=== PATIENT | female | born 1955 | race African-American/Black ===

== ENCOUNTER 2019-02-28 09:19 | Emergency (ER) | payer SELFPAY ==
--- NOTE | 2019-02-28 11:11 | CT ---
CT head without contrast: Multiple axial tomograms obtained through the head without IV enhancement. INDICATIONS: Headache COMPARISON: None FINDINGS: Ventricles have normal size and position. No evidence of intracranial mass, hemorrhage, edema, or infarct. Visualized sinuses and mastoids appear clear. Bony calvarium appears unremarkable. IMPRESSION: No acute finding
[2019-02-28] MEDS ORDERED: Metoclopramide HCl 10 MG/2 ML VIAL ONE (11:16)
[2019-02-28] MEDS ORDERED: Ketorolac Tromethamine 30 MG/ML VIAL ONE (11:17)
[2019-02-28] MEDS ORDERED: Dexamethasone 10 MG/ML VIAL ONE (11:17)
[2019-02-28 11:27] LABS: #Eosinphils 0.1 thou/uL (0.0-0.7); #Lymphocytes 1.5 thou/uL (1.20-3.40); #Monocytes 0.4 thou/uL (0.11-0.59); #Neutrophils 3.9 thou/uL (1.40-6.50); %Basophils 0.8 % (0.0-1.0); %Eosinophils 1.6 % (0.0-10.0); %Monocytes 7.4 % (0.0-10.0); %Neutrophils 65.3 % (42.0-75.0); Mean Corpuscular HGB CONC 32.9 g/dL (32.0-36.0); Mean Corpuscular Hemoglobin 26.3 pg (27.0-31.0); Mean Corpuscular Volume 79.9 fL (78.0-98.0); Mean Platelet Volume 8.5 fL (7.4-10.4); Platelet Count 205 thou/uL (130-400); RBC Distribution Width 12.8 % (11.5-14.5); Red Blood Cell (RBC) Count 4.94 mill/uL (4.20-5.40); White Blood Cell (WBC) Count 5.9 thou/uL (4.8-10.8)
[2019-02-28 11:51] LABS: ALT (SGPT) 15 U/L (8-55); AST (SGOT) 14 U/L (5-34); Albumin 4.3 g/dL (3.4-4.8); Alkaline Phosphatase 87 U/L (40-150); Anion Gap 14 mmol/L (10-20); BUN (Urea Nitrogen) 12 mg/dL (9.8-20.1); Bilirubin, Total 0.4 mg/dL (0.2-1.2); Calc. Creatinine Clearance 0 mL/min (70-130); Carbon Dioxide 31 mmol/L (23-31); Chloride 101 mmol/L (98-107); Estimated GFR-MDRD Greater than 90; Globulin 3.9 g/dL (2.4-3.5); Glucose 113 mg/dL (80-115); Potassium 3.1 mmol/L (3.5-5.1); Protein, Total 8.2 g/dL (6.0-8.3); Sodium 143 mmol/L (136-145)
== END 2019-02-28 12:30 | disposition home or self-care (01) ==
LOC: ERS 09:19
DX: R51 Headache (principal); E87.6 Hypokalemia
CPT/HCPCS: 36415; 70450; 80053; 85025; 96365; 96375; J1100; J1885; J2765

== ENCOUNTER 2021-07-05 11:44 | Outpatient (CLI) | payer MEDICARE | END 2021-07-05 11:45 | disposition home or self-care (01) | LOC: BICULT 11:44 | PROVIDERS: ATTEND Nurse Practitioner | DX: R92.8 Other abnormal and inconclusive findings on diagnostic imaging of breast (principal); N64.9 Disorder of breast, unspecified ==

== ENCOUNTER 2022-08-17 09:05 | Outpatient (CLI) | payer MEDICARE, OTHER | END 2022-08-17 09:06 | disposition home or self-care (01) | LOC: BICMAMMO 09:05 | PROVIDERS: ATTEND Family Medicine | DX: Z13.820 Encounter for screening for osteoporosis (principal); R92.8 Other abnormal and inconclusive findings on diagnostic imaging of breast; E89.40 Asymptomatic postprocedural ovarian failure; M85.88 Other specified disorders of bone density and structure, other site; N63.21 Unspecified lump in the left breast, upper outer quadrant | CPT/HCPCS: 77080 ==

== ENCOUNTER 2024-08-28 13:20 | Outpatient (CLI) | payer MEDICARE | END 2024-08-28 13:21 | disposition home or self-care (01) | LOC: BICMAMMO 13:20 | PROVIDERS: ATTEND Family Medicine | DX: Z12.31 Encounter for screening mammogram for malignant neoplasm of breast (principal); N64.89 Other specified disorders of breast; Z80.3 Family history of malignant neoplasm of breast | CPT/HCPCS: 77063; 77067 ==

== ENCOUNTER 2024-09-15 09:31 | Outpatient (CLI) | payer MEDICARE | END 2024-09-15 09:32 | disposition home or self-care (01) | LOC: BICMAMMO 09:31 | PROVIDERS: ATTEND Family Medicine | DX: N64.89 Other specified disorders of breast (principal) | CPT/HCPCS: 76642; 77065; G0279 ==

== ENCOUNTER → 2024-09-22 | Day surgery (SDC) | payer MEDICARE | LOC: BICULT 12:04 | PROVIDERS: ATTEND Family Medicine | PROC: 0HB5XZX Excision of Chest Skin, External Approach, Diagnostic (ICD-10-PCS; principal; 2024-09-22) | DX: D05.12 Intraductal carcinoma in situ of left breast (principal); N63.20 Unspecified lump in the left breast, unspecified quadrant; C77.3 Secondary and unspecified malignant neoplasm of axilla and upper limb lymph nodes | CPT/HCPCS: 19083; 38505; 76942; 88305; 88341; 88342; 88361 ==

== ENCOUNTER 2024-11-10 08:03 | Outpatient (CLI) | payer OTHER ==
[2024-11-10] MEDS ORDERED: Iopamidol 370 76% 100 ML VIAL ONE (09:11)
== END 2024-11-10 08:04 | disposition home or self-care (01) ==
LOC: NM 08:03
PROVIDERS: ATTEND Surgery
DX: C50.112 Malignant neoplasm of central portion of left female breast (principal)
CPT/HCPCS: 36415; 71260; 74177; 78306; 82565 ×2; A9503

== ENCOUNTER 2025-06-09 14:39 | Observation (INO) | payer OTHER ==
[~2025-06-09 14:39] MED LIST: Iopamidol-370 76% 500 ML MDV (1 ML CHARGE) ONE
[2025-06-09 15:44] LABS: #Basophils Less than 0.03 10x3/uL (0.0-0.2); #Eosinophils 0.05 10x3/uL (0.0-0.7); #Monocytes 0.93 10x3/uL (0.11-0.59); #Neutrophils 4.00 10x3/uL (1.40-6.50); %Basophils 0.3 % (0.0-1.0); %Eosinophils 0.8 % (0.0-10.0); %Lymphocytes 17.9 % (21.0-51.0); %Monocytes 15.2 % (0.0-10.0); %Neutrophils 65.3 % (42.0-75.0); Hematocrit 27.4 % (36.0-47.0); Hemoglobin 8.7 g/dL (12.0-16.0); Mean Corpuscular Hemoglobin 27.1 pg (27.0-31.0); Mean Corpuscular Volume 85.4 fL (78.0-98.0); Platelet Count 317 10x3/uL (130-400); Red Blood Cell (RBC) Count 3.21 mill/uL (4.20-5.40); White Blood Cell (WBC) Count 6.13 10x3/uL (4.8-10.8)
[2025-06-09 16:00] LABS: ALT (SGPT) 18 U/L (Less than 34); AST (SGOT) 21 U/L (11-34); Albumin 2.9 g/dL (3.1-4.5); Alkaline Phosphatase 87 U/L (40-110); Anion Gap 13 mmol/L (10-20); BUN (Urea Nitrogen) 5 mg/dL (9.8-20.1); Bilirubin, Total 0.3 mg/dL (0.3-1.2); Calc. Creatinine Clearance 0 mL/min (70-130); Calcium 9.4 mg/dL (7.8-10.44); Carbon Dioxide 24 mmol/L (23-31); Chloride 101 mmol/L (98-107); Globulin 3.4 g/dL (2.4-3.5); Glucose 138 mg/dL (80-115); Potassium 4.1 mmol/L (3.5-5.1); Sodium 134 mmol/L (136-145)
[2025-06-09 18:04] LABS: CAUTI Indications for Culture Pelvic or flank pain; Glucose, Urine (Dipstick) Normal (Negative); Leukocyte 250 Leu/uL (Negative); Protein, Urine (Dipstick) Negative (Neg-Trace); RBC/HPF 0-3 HPF (0-3); Specific Gravity, Urine 1.003 (1.002-1.036)
[2025-06-09 18:06] LABS: Bacteria/HPF 1+ HPF (None Seen)
[2025-06-09 18:07] LABS: Urine Culture Reflex No No
[2025-06-09] MEDS ORDERED: cefTRIAXone (ROCEPHIN) 1 GM VIAL ONE (19:07)
[2025-06-09 22:44] VITALS: BMI 26.2
[2025-06-10] MEDS ORDERED: Ondansetron PF 4 MG/2 ML Vial IVP PRN (06:13)
[2025-06-10 06:32] LABS: #Basophils Less than 0.03 10x3/uL (0.0-0.2); #Eosinophils 0.04 10x3/uL (0.0-0.7); #Monocytes 0.92 10x3/uL (0.11-0.59); #Neutrophils 4.11 10x3/uL (1.40-6.50); %Basophils 0.3 % (0.0-1.0); %Eosinophils 0.7 % (0.0-10.0); %Lymphocytes 16.2 % (21.0-51.0); %Monocytes 15.0 % (0.0-10.0); %Neutrophils 67.1 % (42.0-75.0); Hematocrit 27.7 % (36.0-47.0); Hemoglobin 8.3 g/dL (12.0-16.0); Mean Corpuscular Hemoglobin 26.8 pg (27.0-31.0); Mean Corpuscular Volume 89.4 fL (78.0-98.0); Platelet Count 297 10x3/uL (130-400); Red Blood Cell (RBC) Count 3.10 mill/uL (4.20-5.40); White Blood Cell (WBC) Count 6.12 10x3/uL (4.8-10.8)
[2025-06-10 07:16] LABS: Anion Gap 14 mmol/L (10-20); BUN (Urea Nitrogen) 4 mg/dL (9.8-20.1); Calc. Creatinine Clearance 109 mL/min (70-130); Calcium 8.7 mg/dL (7.8-10.44); Carbon Dioxide 26 mmol/L (23-31); Chloride 104 mmol/L (98-107); Glucose 150 mg/dL (80-115); Potassium 4.0 mmol/L (3.5-5.1); Sodium 140 mmol/L (136-145)
[2025-06-10] MEDS ORDERED: Dextrose 50% Abboject 50 ML SYRINGE SLOW IVP PRN (07:34)
[2025-06-10] MEDS ORDERED: Glucagon 1 MG/ML KIT IM PRN (07:34)
[2025-06-10] MEDS: Acetaminophen 325 MG TAB PO PRN (07:36)
[2025-06-10] MEDS: Apixaban 5 MG TAB PO SCH (08:44)
[2025-06-10] MEDS: Lisinopril 10 MG TAB PO SCH (08:44)
[2025-06-10] MEDS: glipiZIDE 5 MG TAB PO SCH (08:44)
[2025-06-10 09:29] LABS: Cardiac Risk 3.8 (Less than 4.5); Cholesterol 127.0 mg/dl (< 200 Desired); HDL Cholesterol 33.0 mg/dL (>60 Neg Risk); LDL Cholesterol, Calculated 74.0 mg/dL; Triglycerides 101.0 mg/dL (Less than 150)
[2025-06-10] MEDS: HYDROcodone/Acetaminophen 7.5/325 mg Tablet PO PRN (11:50)
[2025-06-10] MEDS: Senokot S 8.6-50 MG TAB PO SCH (20:10)
[2025-06-11 06:44] LABS: #Basophils Less than 0.03 10x3/uL (0.0-0.2); #Eosinophils 0.06 10x3/uL (0.0-0.7); #Monocytes 0.88 10x3/uL (0.11-0.59); #Neutrophils 3.89 10x3/uL (1.40-6.50); %Basophils 0.3 % (0.0-1.0); %Eosinophils 1.0 % (0.0-10.0); %Lymphocytes 17.7 % (21.0-51.0); %Monocytes 14.8 % (0.0-10.0); %Neutrophils 65.7 % (42.0-75.0); Hematocrit 28.3 % (36.0-47.0); Hemoglobin 8.5 g/dL (12.0-16.0); Mean Corpuscular Hemoglobin 27.1 pg (27.0-31.0); Mean Corpuscular Volume 90.1 fL (78.0-98.0); Platelet Count 299 10x3/uL (130-400); Red Blood Cell (RBC) Count 3.14 mill/uL (4.20-5.40); White Blood Cell (WBC) Count 5.93 10x3/uL (4.8-10.8)
[2025-06-11 07:02] LABS: Anion Gap 12 mmol/L (10-20); BUN (Urea Nitrogen) 6 mg/dL (9.8-20.1); Calc. Creatinine Clearance 123 mL/min (70-130); Calcium 8.7 mg/dL (7.8-10.44); Carbon Dioxide 23 mmol/L (23-31); Chloride 104 mmol/L (98-107); Glucose 136 mg/dL (80-115); Potassium 3.7 mmol/L (3.5-5.1); Sodium 135 mmol/L (136-145)
[2025-06-11 08:16] VITALS: TEMP 98.9
[2025-06-11] MEDS: glipiZIDE 5 MG TAB PO SCH (08:17)
[2025-06-11 09:40] VITALS: BMI 26.2
[2025-06-11] MEDS: Lactulose 20 GM (30 mL) UDCUP PO SCH (11:14)
[2025-06-11 13:32] VITALS: BP 130/79
== END 2025-06-11 13:52 | disposition home or self-care (01) ==
LOC: ERS 14:39 → OBS 18:46
PROVIDERS: ADMIT Family Medicine; ATTEND Family Medicine
DX: R07.89 Other chest pain (principal); I10 Essential (primary) hypertension; E11.9 Type 2 diabetes mellitus without complications; E78.5 Hyperlipidemia, unspecified; N39.0 Urinary tract infection, site not specified; Z86.718 Personal history of other venous thrombosis and embolism; Z90.710 Acquired absence of both cervix and uterus; Z90.12 Acquired absence of left breast and nipple; Z79.84 Long term (current) use of oral hypoglycemic drugs; Z79.01 Long term (current) use of anticoagulants; Z79.899 Other long term (current) drug therapy
CPT/HCPCS: 71275; 78452; 80048; 80053; 80061; 81001; 82962; 83605; 83880; 84484 ×3; 85025 ×2; 87086; 93005; 93017; 94760; 96365; 96375; 99285; A9502; J0696; J2270 ×2; J2785 ×2; J7030; 36415; 36416; Q9967

== ENCOUNTER 2025-06-16 10:20 | Emergency (ER) | payer OTHER ==
[2025-06-16 10:46] LABS: #Basophils 0.03 10x3/uL (0.0-0.2); #Eosinophils 0.06 10x3/uL (0.0-0.7); #Monocytes 0.97 10x3/uL (0.11-0.59); #Neutrophils 7.77 10x3/uL (1.40-6.50); %Basophils 0.3 % (0.0-1.0); %Eosinophils 0.6 % (0.0-10.0); %Lymphocytes 10.6 % (21.0-51.0); %Monocytes 9.8 % (0.0-10.0); %Neutrophils 78.3 % (42.0-75.0); Hematocrit 30.5 % (36.0-47.0); Hemoglobin 9.3 g/dL (12.0-16.0); Mean Corpuscular Hemoglobin 26.6 pg (27.0-31.0); Mean Corpuscular Volume 87.1 fL (78.0-98.0); Platelet Count 284 10x3/uL (130-400); Red Blood Cell (RBC) Count 3.50 mill/uL (4.20-5.40); White Blood Cell (WBC) Count 9.92 10x3/uL (4.8-10.8)
[2025-06-16 11:31] LABS: ALT (SGPT) 22 U/L (Less than 34); AST (SGOT) 41 U/L (11-34); Albumin 3.4 g/dL (3.1-4.5); Alkaline Phosphatase 101 U/L (40-110); Anion Gap 14 mmol/L (10-20); BUN (Urea Nitrogen) 7 mg/dL (9.8-20.1); Bilirubin, Total 0.3 mg/dL (0.3-1.2); Calc. Creatinine Clearance 0 mL/min (70-130); Calcium 9.4 mg/dL (7.8-10.44); Carbon Dioxide 22 mmol/L (23-31); Chloride 102 mmol/L (98-107); Globulin 3.6 g/dL (2.4-3.5); Glucose 200 mg/dL (80-115); Lipase 22 U/L (8-78); Potassium 4.4 mmol/L (3.5-5.1); Sodium 134 mmol/L (136-145)
[2025-06-16] MEDS ORDERED: Ondansetron PF 4 MG/2 ML Vial ONE (12:49)
== END 2025-06-16 16:43 | disposition home or self-care (01) ==
LOC: ERS 10:20
DX: R07.89 Other chest pain (principal); I10 Essential (primary) hypertension; Z79.899 Other long term (current) drug therapy; Z79.82 Long term (current) use of aspirin
CPT/HCPCS: 71045; 74176; 80053; 83690; 83880; 84484 ×2; 85025; 93005; 94760; J2270; J2405; 96374; 96375

== ENCOUNTER 2025-06-18 12:27 | Emergency (ER) | payer OTHER ==
[2025-06-18] MEDS ORDERED: Iopamidol-370 76% 500 ML MDV (1 ML CHARGE) ONE (12:53)
[2025-06-18] MEDS ORDERED: Ketorolac Tromethamine 30 MG (1 mL) VIAL ONE (13:55)
[2025-06-18] MEDS ORDERED: Ondansetron PF 4 MG/2 ML Vial ONE (13:55)
[2025-06-18 13:59] LABS: #Basophils Less than 0.03 10x3/uL (0.0-0.2); #Eosinophils 0.07 10x3/uL (0.0-0.7); #Monocytes 0.71 10x3/uL (0.11-0.59); #Neutrophils 5.58 10x3/uL (1.40-6.50); %Basophils 0.3 % (0.0-1.0); %Eosinophils 0.9 % (0.0-10.0); %Lymphocytes 13.4 % (21.0-51.0); %Monocytes 9.6 % (0.0-10.0); %Neutrophils 75.4 % (42.0-75.0); Hematocrit 32.2 % (36.0-47.0); Hemoglobin 9.8 g/dL (12.0-16.0); Mean Corpuscular Hemoglobin 26.6 pg (27.0-31.0); Mean Corpuscular Volume 87.5 fL (78.0-98.0); Platelet Count 272 10x3/uL (130-400); Red Blood Cell (RBC) Count 3.68 mill/uL (4.20-5.40); White Blood Cell (WBC) Count 7.40 10x3/uL (4.8-10.8)
[2025-06-18 14:20] LABS: Anion Gap 13 mmol/L (10-20); BUN (Urea Nitrogen) 7 mg/dL (9.8-20.1); Calc. Creatinine Clearance 0 mL/min (70-130); Carbon Dioxide 24 mmol/L (23-31); Chloride 101 mmol/L (98-107); Potassium 4.3 mmol/L (3.5-5.1); Sodium 134 mmol/L (136-145)
[2025-06-18 14:21] LABS: ALT (SGPT) 17 U/L (Less than 34); AST (SGOT) 23 U/L (11-34); Albumin 3.5 g/dL (3.1-4.5); Alkaline Phosphatase 97 U/L (40-110); Bilirubin, Total 0.4 mg/dL (0.3-1.2); Calcium 9.5 mg/dL (7.8-10.44); Globulin 3.4 g/dL (2.4-3.5); Glucose 144 mg/dL (80-115); Lipase 19 U/L (8-78)
[2025-06-18 16:21] LABS: Bacteria/HPF None Seen HPF (None Seen); CAUTI Indications for Culture Dysuria,urgency,freq; Glucose, Urine (Dipstick) Normal (Negative); Leukocyte 75 Leu/uL (Negative); Protein, Urine (Dipstick) Negative (Neg-Trace); RBC/HPF 0-3 HPF (0-3); Specific Gravity, Urine 1.008 (1.002-1.036)
[2025-06-18 16:34] LABS: Urine Culture Reflex No No
== END 2025-06-18 17:29 | disposition home or self-care (01) ==
LOC: ERS 12:27
DX: K59.00 Constipation, unspecified (principal); I10 Essential (primary) hypertension; E78.5 Hyperlipidemia, unspecified; E11.9 Type 2 diabetes mellitus without complications; Z79.899 Other long term (current) drug therapy; Z55.6 Problems related to health literacy; Z79.82 Long term (current) use of aspirin
CPT/HCPCS: 74177; 80053; 81001; 83690; 85025; J1885; J2270; J2405; 36415; 96374; 96375; Q9967

== ENCOUNTER 2025-06-20 17:11 | Emergency (ER) | payer OTHER ==
[2025-06-20 18:56] LABS: Bacteria/HPF None Seen HPF (None Seen); CAUTI Indications for Culture Dysuria,urgency,freq; Glucose, Urine (Dipstick) Normal (Negative); Leukocyte 75 Leu/uL (Negative); Protein, Urine (Dipstick) Negative (Neg-Trace); RBC/HPF 0-3 HPF (0-3); Specific Gravity, Urine 1.004 (1.002-1.036); WBC/HPF 0-3 HPF (0-3)
[2025-06-20 18:58] LABS: Urine Culture Reflex No No
[2025-06-20 20:59] LABS: #Basophils Less than 0.03 10x3/uL (0.0-0.2); #Eosinophils 0.06 10x3/uL (0.0-0.7); #Monocytes 0.96 10x3/uL (0.11-0.59); #Neutrophils 6.49 10x3/uL (1.40-6.50); %Basophils 0.2 % (0.0-1.0); %Eosinophils 0.7 % (0.0-10.0); %Lymphocytes 13.4 % (21.0-51.0); %Monocytes 11.0 % (0.0-10.0); %Neutrophils 74.5 % (42.0-75.0); Hematocrit 28.7 % (36.0-47.0); Hemoglobin 9.0 g/dL (12.0-16.0); Mean Corpuscular Hemoglobin 27.1 pg (27.0-31.0); Mean Corpuscular Volume 86.4 fL (78.0-98.0); Platelet Count 239 10x3/uL (130-400); Red Blood Cell (RBC) Count 3.32 mill/uL (4.20-5.40); White Blood Cell (WBC) Count 8.72 10x3/uL (4.8-10.8)
[2025-06-20 21:14] LABS: ALT (SGPT) 21 U/L (Less than 34); AST (SGOT) 22 U/L (11-34); Albumin 3.2 g/dL (3.1-4.5); Alkaline Phosphatase 88 U/L (40-110); Anion Gap 14 mmol/L (10-20); BUN (Urea Nitrogen) 10 mg/dL (9.8-20.1); Bilirubin, Total 0.4 mg/dL (0.3-1.2); Calc. Creatinine Clearance 0 mL/min (70-130); Calcium 9.3 mg/dL (7.8-10.44); Carbon Dioxide 25 mmol/L (23-31); Chloride 107 mmol/L (98-107); Globulin 2.9 g/dL (2.4-3.5); Glucose 113 mg/dL (80-115); Lipase 23 U/L (8-78); Potassium 3.6 mmol/L (3.5-5.1); Sodium 142 mmol/L (136-145)
== END 2025-06-20 22:10 | disposition home or self-care (01) ==
LOC: ERS 17:11
DX: Z04.3 Encounter for examination and observation following other accident (principal); R53.1 Weakness; I10 Essential (primary) hypertension; E11.9 Type 2 diabetes mellitus without complications; E78.5 Hyperlipidemia, unspecified; Z79.899 Other long term (current) drug therapy; Z79.82 Long term (current) use of aspirin
CPT/HCPCS: 70450; 71045; 72125; 72170; 80053; 81001; 83690; 83880; 84484; 85025; 93005; 96372; 99285; J2270; 36415

== ENCOUNTER 2025-06-29 11:28 | Inpatient (IN) | payer OTHER ==
[2025-06-29 12:22] LABS: #Basophils 0.03 10x3/uL (0.0-0.2); #Eosinophils 0.09 10x3/uL (0.0-0.7); #Monocytes 0.61 10x3/uL (0.11-0.59); #Neutrophils 4.04 10x3/uL (1.40-6.50); %Basophils 0.5 % (0.0-1.0); %Eosinophils 1.5 % (0.0-10.0); %Lymphocytes 18.8 % (21.0-51.0); %Monocytes 10.3 % (0.0-10.0); %Neutrophils 68.4 % (42.0-75.0); Hematocrit 34.5 % (36.0-47.0); Hemoglobin 10.9 g/dL (12.0-16.0); Mean Corpuscular Hemoglobin 26.4 pg (27.0-31.0); Mean Corpuscular Volume 83.5 fL (78.0-98.0); Platelet Count 257 10x3/uL (130-400); Red Blood Cell (RBC) Count 4.13 mill/uL (4.20-5.40); White Blood Cell (WBC) Count 5.91 10x3/uL (4.8-10.8)
[2025-06-29 12:38] LABS: INR-International Normal Ratio 1.1; PTT 26.8 sec (22.9-36.1); Prothrombin Time 14.3 sec (12.0-14.7)
[2025-06-29 12:50] LABS: ALT (SGPT) 24 U/L (Less than 34); AST (SGOT) 31 U/L (11-34); Albumin 3.5 g/dL (3.1-4.5); Alkaline Phosphatase 95 U/L (40-110); Anion Gap 16 mmol/L (10-20); BUN (Urea Nitrogen) 9 mg/dL (9.8-20.1); Bilirubin, Total 0.4 mg/dL (0.3-1.2); CK (CPK) 136 U/L (29-168); Calc. Creatinine Clearance 0 mL/min (70-130); Calcium 10.0 mg/dL (7.8-10.44); Carbon Dioxide 25 mmol/L (23-31); Chloride 103 mmol/L (98-107); Globulin 3.7 g/dL (2.4-3.5); Glucose 128 mg/dL (80-115); Magnesium 2.0 mg/dL (1.6-2.6); Potassium 3.4 mmol/L (3.5-5.1); Sodium 141 mmol/L (136-145)
[2025-06-29] MEDS ORDERED: Iopamidol-370 76% 500 ML MDV (1 ML CHARGE) ONE (13:07)
[2025-06-29 15:43] LABS: Bacteria/HPF None Seen HPF (None Seen); CAUTI Indications for Culture Alt mental st,lethar; Glucose, Urine (Dipstick) Normal (Negative); Leukocyte 25 Leu/uL (Negative); Protein, Urine (Dipstick) Negative (Neg-Trace); RBC/HPF 0-3 HPF (0-3); Specific Gravity, Urine 1.009 (1.002-1.036); WBC/HPF 0-3 HPF (0-3)
[2025-06-29 15:49] LABS: Urine Culture Reflex No No
[2025-06-29] MEDS ORDERED: Acetaminophen 500 MG TAB ONE (16:07)
[2025-06-29] MEDS ORDERED: Aspirin Chewable 81 MG TAB ONE (17:09)
[2025-06-29] MEDS ORDERED: Ondansetron PF 4 MG/2 ML Vial IVP PRN (17:49)
[2025-06-29] MEDS ORDERED: Dextrose 50% Abboject 50 ML SYRINGE SLOW IVP PRN (17:49)
[2025-06-29] MEDS ORDERED: Guaifenesin DM 100-10/5 ML UDCUP PO PRN (17:49)
[2025-06-29] MEDS ORDERED: Acetaminophen 325 MG TAB PO PRN (17:49)
[2025-06-29] MEDS ORDERED: Glucagon 1 MG/ML KIT IM PRN (17:49)
[2025-06-29] MEDS: Gabapentin 100 MG CAP PO SCH (21:53)
[2025-06-29] MEDS: Senokot S 8.6-50 MG TAB PO SCH (21:53)
[2025-06-29] MEDS: Famotidine 20 MG TAB PO SCH (21:55)
[2025-06-29] MEDS: Apixaban 5 MG TAB PO SCH (21:55)
[2025-06-29] MEDS: HYDROcodone/Acetaminophen 7.5/325 mg Tablet PO PRN (21:55)
[2025-06-29 22:45] VITALS: BMI 28.2
[2025-06-30 04:10] LABS: Anion Gap 13 mmol/L (10-20); BUN (Urea Nitrogen) 6 mg/dL (9.8-20.1); CK (CPK) 89 U/L (29-168); Calc. Creatinine Clearance 115 mL/min (70-130); Calcium 9.0 mg/dL (7.8-10.44); Carbon Dioxide 24 mmol/L (23-31); Chloride 108 mmol/L (98-107); Glucose 101 mg/dL (80-115); Magnesium 1.8 mg/dL (1.6-2.6); Potassium 3.9 mmol/L (3.5-5.1); Sodium 141 mmol/L (136-145)
[2025-06-30] MEDS: Bisacodyl 10 MG SUPP PR PRN (04:31)
[2025-06-30 04:38] LABS: Influenza A by NAA Not Detected (NotDetected); Influenza B by NAA Not Detected (NotDetected); RSV by NAA Not Detected (NotDetected); SARS-CoV-2 NAA Rapid Test Not Detected (NotDetected)
[2025-06-30 04:39] LABS: Thyroid Stimulating Hormone 1.5563 uIU/mL (0.35-4.94); Vitamin B12 1061.0 pg/mL (211-911)
[2025-06-30] MEDS: Cyanocobalamin (Vitamin B-12) 1,000 MCG TAB PO SCH (08:47)
[2025-06-30] MEDS: glipiZIDE 5 MG TAB PO SCH (08:47)
[2025-06-30] MEDS: Lisinopril 10 MG TAB PO SCH (08:47)
[2025-07-01] MEDS: Bisacodyl 10 MG SUPP PR SCH (02:49)
[2025-07-01] MEDS: Senokot S 8.6-50 MG TAB PO PRN (20:13)
[2025-07-02] MEDS: Transdermal Patch Removal TOP SCH (20:57)
[2025-07-03] MEDS: Calcium Carbonate 500 MG ChewTAB PO PRN (06:28)
[2025-07-03] MEDS: Carvedilol 6.25 MG TAB PO SCH (09:41)
[2025-07-03 12:47] VITALS: TEMP 98.5
[2025-07-03 13:11] VITALS: BP 116/73
[2025-07-03] MEDS ORDERED: Carvedilol 6.25 MG TAB PO SCH (17:00)
== END 2025-07-03 13:30 | DRG 641 ==
LOC: ERS 11:28 → PCU 17:08 → OBSVTOIN 07-01 14:34
PROVIDERS: ADMIT Family Medicine; ATTEND Internal Medicine
DX: E87.6 Hypokalemia (principal); R53.1 Weakness; I10 Essential (primary) hypertension; E78.5 Hyperlipidemia, unspecified; R07.89 Other chest pain; R79.89 Other specified abnormal findings of blood chemistry; M19.90 Unspecified osteoarthritis, unspecified site; E11.40 Type 2 diabetes mellitus with diabetic neuropathy, unspecified; K59.00 Constipation, unspecified; D63.1 Anemia in chronic kidney disease; Z60.2 Problems related to living alone; Z86.718 Personal history of other venous thrombosis and embolism; Z85.3 Personal history of malignant neoplasm of breast; Z98.890 Other specified postprocedural states; Z90.710 Acquired absence of both cervix and uterus; Z79.899 Other long term (current) drug therapy; Z79.01 Long term (current) use of anticoagulants
CPT/HCPCS: 36415; 36416; 70450; 71045; 71275; 72148; 74174; 80048; 80053; 81001; 82550; 82607; 83605; 83735; 84443; 84484; 85025; 85610; 85730; 87637; 93970; 96374; G0378; J1815; J7120; Q9967

== ENCOUNTER 2025-07-30 16:48 | Inpatient (IN) | payer OTHER ==
[2025-07-30] MEDS ORDERED: Droperidol 5 MG/2 ML VIAL ONE (17:35)
[2025-07-30 18:06] LABS: ALT (SGPT) 19 U/L (Less than 34); AST (SGOT) 29 U/L (11-34); Albumin 3.2 g/dL (3.1-4.5); Alkaline Phosphatase 71 U/L (40-110); Anion Gap 16 mmol/L (10-20); BUN (Urea Nitrogen) 25 mg/dL (9.8-20.1); Bilirubin, Total 0.3 mg/dL (0.3-1.2); Calc. Creatinine Clearance 0 mL/min (70-130); Calcium 9.7 mg/dL (7.8-10.44); Carbon Dioxide 20 mmol/L (23-31); Chloride 104 mmol/L (98-107); Globulin 3.9 g/dL (2.4-3.5); Glucose 106 mg/dL (80-115); Lipase 44 U/L (8-78); Potassium 3.7 mmol/L (3.5-5.1); Sodium 136 mmol/L (136-145)
[2025-07-30 19:24] LABS: #Basophils Less than 0.03 10x3/uL (0.0-0.2); #Eosinophils 0.07 10x3/uL (0.0-0.7); #Monocytes 0.94 10x3/uL (0.11-0.59); #Neutrophils 4.12 10x3/uL (1.40-6.50); %Basophils 0.3 % (0.0-1.0); %Eosinophils 1.0 % (0.0-10.0); %Lymphocytes 23.7 % (21.0-51.0); %Monocytes 13.9 % (0.0-10.0); %Neutrophils 61.0 % (42.0-75.0); Hematocrit 29.7 % (36.0-47.0); Hemoglobin 9.8 g/dL (12.0-16.0); Mean Corpuscular Hemoglobin 25.9 pg (27.0-31.0); Mean Corpuscular Volume 78.6 fL (78.0-98.0); Platelet Count 200 10x3/uL (130-400); Red Blood Cell (RBC) Count 3.78 mill/uL (4.20-5.40); White Blood Cell (WBC) Count 6.76 10x3/uL (4.8-10.8)
[2025-07-30] MEDS ORDERED: Dextrose 50% Abboject 50 ML SYRINGE SLOW IVP PRN (20:12)
[2025-07-30] MEDS ORDERED: Glucagon 1 MG/ML KIT IM PRN (20:12)
[2025-07-30] MEDS ORDERED: hydrALAZINE 20 MG/ML VIAL SLOW IVP PRN (20:12)
[2025-07-30] MEDS ORDERED: Ondansetron PF 4 MG/2 ML Vial IVP PRN (20:16)
[2025-07-31] MEDS: Acetaminophen 325 MG TAB PO PRN (02:15)
[2025-07-31 05:14] VITALS: BMI 29.0
[2025-07-31] MEDS: Carvedilol 25 MG TAB PO SCH (08:17)
[2025-07-31 10:04] VITALS: BMI 29.0
[2025-07-31 10:21] LABS: #Basophils 0.03 10x3/uL (0.0-0.2); #Eosinophils 0.06 10x3/uL (0.0-0.7); #Monocytes 0.57 10x3/uL (0.11-0.59); #Neutrophils 3.01 10x3/uL (1.40-6.50); %Basophils 0.7 % (0.0-1.0); %Eosinophils 1.3 % (0.0-10.0); %Lymphocytes 18.6 % (21.0-51.0); %Monocytes 12.6 % (0.0-10.0); %Neutrophils 66.8 % (42.0-75.0); Hematocrit 29.7 % (36.0-47.0); Hemoglobin 9.3 g/dL (12.0-16.0); Mean Corpuscular Hemoglobin 25.5 pg (27.0-31.0); Mean Corpuscular Volume 81.4 fL (78.0-98.0); Platelet Count 185 10x3/uL (130-400); Red Blood Cell (RBC) Count 3.65 mill/uL (4.20-5.40); White Blood Cell (WBC) Count 4.51 10x3/uL (4.8-10.8)
[2025-07-31 11:01] LABS: ALT (SGPT) 16 U/L (Less than 34); AST (SGOT) 17 U/L (11-34); Albumin 2.8 g/dL (3.1-4.5); Alkaline Phosphatase 59 U/L (40-110); Anion Gap 14 mmol/L (10-20); BUN (Urea Nitrogen) 12 mg/dL (9.8-20.1); Bilirubin, Total 0.4 mg/dL (0.3-1.2); Calc. Creatinine Clearance 114 mL/min (70-130); Calcium 8.9 mg/dL (7.8-10.44); Carbon Dioxide 24 mmol/L (23-31); Chloride 108 mmol/L (98-107); Globulin 3.3 g/dL (2.4-3.5); Glucose 111 mg/dL (80-115); Potassium 3.3 mmol/L (3.5-5.1); Sodium 143 mmol/L (136-145)
[2025-07-31] MEDS ORDERED: PROPOFOL 20 ML ONE (11:44)
[2025-07-31] MEDS ORDERED: Ondansetron PF 4 MG/2 ML Vial ONE (11:44)
[2025-07-31] MEDS ORDERED: fentaNYL PF 100 MCG/2 ML SYRINGE ONE (11:44)
[2025-07-31] MEDS ORDERED: Lidocaine 1% PF 5 ML VIAL ONE (11:44)
[2025-07-31] MEDS ORDERED: Bupivacaine 0.25% HCL 30 ML VIAL ONE (11:51)
[2025-07-31] MEDS ORDERED: PHENYLEPHRINE-NS 100 MCG/ML 10 ML SYRINGE ONE (12:18)
[2025-07-31] MEDS ORDERED: Rocuronium Bromide 10 MG/ML (10ML VIAL) ONE (12:18)
[2025-07-31] MEDS ORDERED: SUGAMMADEX SODIUM 200 MG/2 ML VIAL ONE (12:51)
[2025-07-31] MEDS: glipiZIDE 5 MG TAB PO SCH (15:00)
[2025-07-31] MEDS: Senokot S 8.6-50 MG TAB PO SCH (15:00)
[2025-07-31] MEDS: Lisinopril 10 MG TAB PO SCH (15:00)
[2025-07-31 17:59] VITALS: TEMP 97.7
[2025-07-31 18:03] VITALS: BP 132/79
[2025-07-31] MEDS ORDERED: Gabapentin 100 MG CAP PO SCH (21:00)
== END 2025-07-31 17:56 | disposition home or self-care (01) | DRG 419 ==
LOC: ERS 16:48 → SURG B 20:12
PROVIDERS: ADMIT Surgery; ATTEND Surgery
PROC: 3E03329 Introduction of Other Anti-infective into Peripheral Vein, Percutaneous Approach (ICD-10-PCS; 2025-07-30)
PROC: 0FT44ZZ Resection of Gallbladder, Percutaneous Endoscopic Approach (ICD-10-PCS; principal; 2025-07-31)
PROC: 3E033XZ Introduction of Vasopressor into Peripheral Vein, Percutaneous Approach (ICD-10-PCS; 2025-07-31)
DX: K80.00 Calculus of gallbladder with acute cholecystitis without obstruction (principal); I10 Essential (primary) hypertension; E11.9 Type 2 diabetes mellitus without complications; Z86.718 Personal history of other venous thrombosis and embolism; Z90.710 Acquired absence of both cervix and uterus; Z85.3 Personal history of malignant neoplasm of breast; K43.2 Incisional hernia without obstruction or gangrene; Z79.01 Long term (current) use of anticoagulants; Z79.899 Other long term (current) drug therapy; Z79.84 Long term (current) use of oral hypoglycemic drugs; Z90.12 Acquired absence of left breast and nipple
CPT/HCPCS: 36415; 36416; 74176; 76705; 80053; 83605; 83690; 85025; 88304; 96365; 96375; 96376; C1889; J0169; J0665; J1100; J1790; J2270; J2405; J2543; J2704; J7120